=== PATIENT | female | born 1990 | race Two or more races ===

== ENCOUNTER 2021-05-11 04:14 | Emergency (ER) | payer OTHER ==
[~2021-05-11] VITALS: Ht 160 cm; Wt 90.7 kg
[2021-05-11 04:16] VITALS: BP 112/87
--- NOTE | 2021-05-11 04:28 | NUR ---
urine sent to lab
--- NOTE | 2021-05-11 04:56 | NUR ---
PT WAS DISCHARGED IN CUSTODY TO [facility] IN STABLE CONDITION
== END 2021-05-11 05:00 ==
LOC: ER 04:19
DX: Z02.89 Encounter for other administrative examinations (principal); Z71.1 Person with feared health complaint in whom no diagnosis is made
CPT/HCPCS: 84703-TC